=== PATIENT | male | born 1955 | race Two or more races ===

== ENCOUNTER 2020-03-05 08:23 | Emergency (ER) | payer OTHER ==
[~2020-03-05] VITALS: Ht 170.2 cm; Wt 95.0 kg
[2020-03-05 08:54] LABS: BASO % 1 % (0-3); EOS # 0.1 x10^3/uL (0.0-0.7); EOS % 1 % (0-3); HEMATOCRIT 42.2 % (39.0-53.0); HEMOGLOBIN 14.6 g/dL (13.0-17.5); LYMPH % 17 % (24-48); MEAN CORPUSCULAR HEMOGLOBIN 30 pg (25-35); MEAN CORPUSCULAR HGB CONC 35 g/dL (31-37); MEAN CORPUSCULAR VOLUME 86 fL (79-100); MONO # 0.4 x10^3/uL (0.0-1.1); MONO % 7 % (0-9); NEUT # 4.2 x10^3/uL (1.8-7.7); NEUT % 75 % (31-73); PLATELET COUNT 191 x10^3/uL (140-400); RED CELL DISTRIBUTION WIDTH 14.1 % (11.5-14.5); WHITE BLOOD COUNT 5.7 x10^3/uL (4.0-11.0)
--- NOTE | 2020-03-05 09:06 | RAD ---
Examination: CHEST AP ONLY History: Reason: recently dizzy, light headedness / Spl. Instructions: / History: Comparison: None. Findings: AP portable upright frontal view of the chest was obtained. Left costophrenic angle is not fully included and this may limit assessment. The cardiomediastinal silhouette is normal. Lungs are clear. There is no pneumothorax. No significant pleural effusion is appreciated. No acute bone abnormality. IMPRESSION: No acute cardiopulmonary process. Electronically signed by: Guille Bruner MD (03/05/2020 9:04 AM) [id number]
[2020-03-05 09:07] LABS: CALCIUM 8.6 mg/dL (8.5-10.1); CREATININE 1.1 mg/dL (0.7-1.3); GFR 67.6; POTASSIUM 3.6 mmol/L (3.5-5.1)
[2020-03-05 09:13] LABS: ALBUMIN/GLOBULIN RATIO 1.4 (1.0-1.7); TOTAL BILIRUBIN 0.4 mg/dL (0.2-1.0); TOTAL PROTEIN 6.9 g/dL (6.4-8.2)
[2020-03-05] MEDS ORDERED: MORPHINE SULFATE 2 MG/ML VIAL. IVP ONE (09:30)
--- NOTE | 2020-03-05 09:38 | PHYS DOC ---
Past Medical History Past Medical History: High Cholesterol, Hypertension, Other Additional Past Medical Histor: BPH, ABDOMINAL HERNIA X2 Past Surgical History: No Surgical History Smoking Status: Never Smoker Alcohol Use: None General Adult EDM: Chief Complaint: DIZZY/LIGHT HEADED HPI: HPI: Patient is a 64 year old male who presents with abdominal pain and dizziness. Patient has a known history of 2 hernias worse on the right side and is currently following up with the surgeon. Today was his first day back to work and while walking in he developed severe abdominal pain where his hernia is. He then developed dizziness and diaphoresis. He states his surgeon who told him that he needed to be off work, however work told him that he was safe to come back. He states pain is unchanged from previous pain. He denies any chest pain or shortness of breath. Review of Systems: Review of Systems: General: Denies fever, chills, sweats, fatigue Eyes: Denies drainage, blurred vision HENT: Denies rhinorrhea, sore throat Respiratory: Denies cough, shortness of breath, wheezing Cardiac: Denies edema, palpitations, chest pain GI: Denies N/V reports abdominal pain MSK: Denies back pain, neck pain Skin: Denies rash, jaundice Neuro: Denies headache.reports dizziness Psychiatric: Denies SI/HI Heart Score: Risk Factors: Risk Factors: DM, Current or recent (<one month) smoker, HTN, HLP, family history of CAD, obesity. Risk Scores: Score 0 - 3: 2.5% MACE over next 6 weeks - Discharge Home Score 4 - 6: 20.3% MACE over next 6 weeks - Admit for Clinical Observation Score 7 - 10: 72.7% MACE over next 6 weeks - Early Invasive Strategies Current Medications: Current Medications Medications (Trade) Dose Ordered Sig/Steve Start Time Stop Time Status Last Admin Dose Admin Morphine Sulfate (Morphine Sulfate) 2 mg 1X ONCE 03/05/20 09:30 03/05/20 09:31 DC 03/05/20 09:29 2 MG Allergies: Allergies: Allergies Coded Allergies Type Severity Reaction Last Updated Verified No Known Drug Allergies 03/05/20 No Physical Exam: PE: Constitutional: Well developed, well nourished, Cooperative, NAD, non-toxic appearing HEENT: Normocephalic, atraumatic, oropharynx moist, EOMI, PERRL, no drainage from eyes, normal conjunctiva Neck: Supple, normal range of motion, no stridor Cardiovascular: RRR, 2+ radial pulses bilaterally, no edema Respiratory: CTA bilaterally, no respiratory distress, no wheezing/crackles Abdomen: Soft, nontender, nondistended, no masses Skin: Warm, dry, intact Extremities: No obvious deformities Neurologic: Alert and Oriented x3, motor and sensory function grossly normal, no focal deficits Psychologic: Normal affect, normal judgment, normal mood. No SI/HI Current Patient Data: Labs: Laboratory Tests Test 03/05/20 08:45 White Blood Count 5.7 x10^3/uL (4.0-11.0) Red Blood Count 4.90 x10^6/uL (4.30-5.70) Hemoglobin 14.6 g/dL (13.0-17.5) Hematocrit 42.2 % (39.0-53.0) Mean Corpuscular Volume 86 fL (79-100) Mean Corpuscular Hemoglobin 30 pg (25-35) Mean Corpuscular Hemoglobin Concent 35 g/dL (31-37) Red Cell Distribution Width 14.1 % (11.5-14.5) Platelet Count 191 x10^3/uL (140-400) Neutrophils (%) (Auto) 75 % (31-73) H Lymphocytes (%) (Auto) 17 % (24-48) L Monocytes (%) (Auto) 7 % (0-9) Eosinophils (%) (Auto) 1 % (0-3) Basophils (%) (Auto) 1 % (0-3) Neutrophils # (Auto) 4.2 x10^3/uL (1.8-7.7) Lymphocytes # (Auto) 1.0 x10^3/uL (1.0-4.8) Monocytes # (Auto) 0.4 x10^3/uL (0.0-1.1) Eosinophils # (Auto) 0.1 x10^3/uL (0.0-0.7) Basophils # (Auto) 0.0 x10^3/uL (0.0-0.2) Sodium Level 140 mmol/L (136-145) Potassium Level 3.6 mmol/L (3.5-5.1) Chloride Level 105 mmol/L (98-107) Carbon Dioxide Level 25 mmol/L (21-32) Anion Gap 10 (6-14) Blood Urea Nitrogen 20 mg/dL (8-26) Creatinine 1.1 mg/dL (0.7-1.3) Estimated GFR (Cockcroft-Gault) 67.6 BUN/Creatinine Ratio 18 (6-20) Glucose Level 99 mg/dL (70-99) Calcium Level 8.6 mg/dL (8.5-10.1) Total Bilirubin 0.4 mg/dL (0.2-1.0) Aspartate Amino Transferase (AST) 16 U/L (15-37) Alanine Aminotransferase (ALT) 22 U/L (16-63) Alkaline Phosphatase 68 U/L (46-116) Troponin I Quantitative < 0.017 ng/mL (0.000-0.055) Total Protein 6.9 g/dL (6.4-8.2) Albumin 4.0 g/dL (3.4-5.0) Albumin/Globulin Ratio 1.4 (1.0-1.7) Laboratory Tests 03/05/20 08:45 Laboratory Tests 03/05/20 08:45 Vital Signs: Vital Signs Date Time Temp Pulse Resp B/P (MAP) Pulse Ox O2 Delivery O2 Flow Rate FiO2 03/05/20 09:29 16 98 Room Air 03/05/20 08:30 98.1 80 195/110 (138) 98.1 EKG: EKG: [] Radiology/Procedures: Radiology/Procedures: [] Course & Med Decision Making: Course & Med Decision Making Pertinent Labs and Imaging studies reviewed. (See chart for details) Patient is a 64-year-old male who presents to the emergency room complaining of an episode of dizziness and abdominal pain. He has been having intermittent abdominal pain for the last several months. Today he returned to work and while walking straight to the clinic upon arrival he got very dizzy and diaphoretic. He also developed severe abdominal pain. This is all resolved. Dizziness work-up was ordered including CBC, BMP, troponin, EKG, chest x-ray. CT abdomen pelvis was ordered to evaluate hernia. Work up stable at this time. Patient appears well and is stable for discharge. I have recommended he not return to work until cleared by his surgeon. Patient's test results and vitals while in the ED were fully reviewed and discussed with the patient. Patient is stable and at this time does not need admission to the hospital. We have discussed strict return precautions and the importance of following up with their Primary Care Physician. Patient stated understanding and was given an opportunity to ask any questions. Carlos Disclaimer: Carlos Disclaimer: This electronic medical record was generated, in whole or in part, using a voice recognition dictation system. Departure Departure Impression: Primary Impression: Abdominal pain Additional Impressions: Dizziness Hypertension Disposition: HOME, SELF-CARE Condition: GOOD Referrals: Amie DAMIAN MD (PCP) Patient Instructions: Dizziness, Hernia Additional Instructions: Per discussion, do not return to work until you have followed up with your Surgeon. Your surgeon's note clearly states you are not to be working until surgery. You will need to be cleared by surgeon prior to returning to work. Justicifation of Admission Dx: Justifications for Admission: Justification of Admission Dx: No MITCHELL CAMPBELL MD Mar 05, 2020 09:38
[2020-03-05 09:40] LABS: BILIRUBIN,URINE NEGATIVE (NEG); CLARITY,URINE CLEAR; COLOR,URINE YELLOW; NITRITE,URINE NEGATIVE (NEG); PH,URINE 5.5 (<5.0-8.0); PROTEIN,URINE 100 mg/dL (NEG-TRACE); UROBILINOGEN,URINE 0.2 mg/dL (0.2 mg/dL)
[2020-03-05] MEDS ORDERED: IOHEXOL 240 MG/ML 50ML VIAL. PO ONE (09:45)
[2020-03-05] MEDS ORDERED: IOHEXOL 300 MG/ML 100ML VIAL. IV ONE (09:45)
[2020-03-05] MEDS ORDERED: CONTRAST GIVEN. MC PRN (10:00)
[2020-03-05 10:03] LABS: BACTERIA,URINE 0 /HPF (0-FEW); RBC,URINE 0 /HPF (0-2); SQUAMOUS EPITHELIAL CELL,UR FEW /LPF; WBC,URINE 0 /HPF (0-4)
--- NOTE | 2020-03-05 11:01 | RAD ---
Examination: CT ABD PELV W/ORAL IV CONTRAST History: Reason: hernia, severe pain / Comparison/Correlation: None Findings: Axial images of the abdomen and pelvis were obtained following IV and oral contrast. Sagittal and coronal reformatted images were provided. Visualized lung bases are clear. Liver, spleen, pancreas, adrenal glands, and kidneys are normal. Gallbladder fossa is unremarkable. Small umbilical hernia contains omental fat. Appendix is normal. Mild distention of mid abdominal small bowel loops are present but there is no transition point. Contrast is noted more distally within the decompressed small bowel. No extraluminal gas. No enlarged abdominal or pelvic lymph nodes. No ascites or pelvic free fluid. Urinary bladder is unremarkable. Prostate gland measures 5.2 cm transverse 4.1 cm anteroposterior. Moderate-sized left inguinal hernia contains omental fat. Small right inguinal hernia containing fat. There is no extension of bowel into the hernias. Bony structures are unremarkable. Impression: Moderate-sized left inguinal hernia contains omental fat. Small right inguinal hernia. Mid abdominal small bowel loops are mildly distended. This may represent ileus. No findings to suggest obstruction. Prostatomegaly. PQRS Compliance Statement: One or more of the following individualized dose reduction techniques were utilized for this examination: 1. Automated exposure control 2. Adjustment of the mA and/or kV according to patient size 3. Use of iterative reconstruction technique Electronically signed by: Guille Bruner MD (03/05/2020 10:59 AM) [id number]
[2020-03-05 11:45] VITALS: BP 159/109
--- NOTE | 2020-03-08 16:03 | EKG ---
[facility] [address] [place] [address] Test Date: 2020-03-05 Test Time: 09:09:47 Pat Name: GABRIELA KARIMI Department: Room: Gender: M [employer]: : 1955 Requested By: MITCHELL CAMPBELL Order Number: [id number] Reading MD: Measurements Intervals [place] Rate: 75 P: -103 PA: 136 QRS: -31 QRSD: 92 T: 28 QT: 408 QTc: 458 Interpretive Statements SINUS RHYTHM ABNORMAL LEFT AXIS DEVIATION LEFT ANTERIOR FASCICULAR BLOCK QRS(T) CONTOUR ABNORMALITY CONSIDER ANTEROSEPTAL MYOCARDIAL DAMAGE ABNORMAL ECG RI6.01 No previous ECG available for comparison
== END 2020-03-05 12:08 | disposition home or self-care (01) ==
LOC: ER 08:23
DX: R10.30 Lower abdominal pain, unspecified (principal); R42 Dizziness and giddiness; I10 Essential (primary) hypertension; E78.00 Pure hypercholesterolemia, unspecified; N40.0 Benign prostatic hyperplasia without lower urinary tract symptoms; Z98.890 Other specified postprocedural states
CPT/HCPCS: 36415; 71045; 74177; 80053; 81001; 84484; 85025; 93005; 96374; 99285; J2270; Q9966; Q9967

== ENCOUNTER → 2021-02-16 | Outpatient (CLI) | payer BC ==
--- NOTE | 2021-02-17 08:18 | KCIC ---
EXAMINATION: Abdominal radiograph. VIEWS: 2 views COMPARISON: 03/05/2020 INDICATION: 65 years, Male, abdominal pain and bloating for one month. Bilateral inguinal hernia repa ir in April 2020 FINDINGS: Nonobstructive bowel gas pattern. No gross pneumoperitoneum.No abnormal intra-abdominal calcification s. Lung bases are unremarkable.No acute process process. IMPRESSION: Nonobstructive bowel gas pattern. Electronically signed by: Jimenez Lopes MD (02/17/2021 8:16 AM) [id number]
== END ==
LOC: KCIC 12:56
PROVIDERS: ATTEND Family Medicine
DX: R14.0 Abdominal distension (gaseous) (principal)
CPT/HCPCS: 74021

== ENCOUNTER 2021-05-22 10:19 | Emergency (ER) | payer BC | END 2021-05-22 11:08 | disposition left against medical advice (07) | LOC: ER 10:19 | DX: S89.91XA Unspecified injury of right lower leg, initial encounter (principal); Z53.21 Procedure and treatment not carried out due to patient leaving prior to being seen by health care provider; X58.XXXA Exposure to other specified factors, initial encounter; Y93.89 Activity, other specified; Y92.89 Other specified places as the place of occurrence of the external cause; Y99.8 Other external cause status ==

== ENCOUNTER → 2021-06-24 | Outpatient (CLI) | payer BC ==
--- NOTE | 2021-06-24 16:29 | RAD ---
US EXT NON VASC RIGHT History:Reason: CONTUSION OF RIGHT LOWER LEG / Spl. Instructions: / History: Comparison: None Technique: Sonographic examination of the right lower extremity Findings: Complicated multiloculated fluid collection within the right anterior lower leg measures approximatel y 4.7 x 3.4 x 1.5 cm. There is no increased Doppler flow. There is adjacent subcutaneous edema. Impression: 1. Complicated multiloculated fluid collection within the right anterior lower extremity, most likel y liquefying hematoma. Recommend continued clinical follow-up and imaging follow-up if clinically ind icated. Electronically signed by: Juan Carlos Workman DO (06/24/2021 4:27 PM) [id number]
== END ==
LOC: US 15:48
PROVIDERS: ATTEND Family Medicine
DX: S80.11XD Contusion of right lower leg, subsequent encounter (principal); X58.XXXD Exposure to other specified factors, subsequent encounter
CPT/HCPCS: 76881